=== PATIENT | female | born 1985 | race Caucasian/White ===

== ENCOUNTER 2022-10-16 12:27 | Emergency (ER) | payer MEDICAID, OTHER ==
[~2022-10-16] VITALS: Ht 154.9 cm; Wt 71.0 kg
[~2022-10-16 12:27] MED LIST: ALPR-341; BUPR150T2; [UNRECOGNIZED DRUG - CODE]
[2022-10-16 12:40] VITALS: BP 122/81
[2022-10-16] MEDS ORDERED: IBUPROFEN 600MG TABLET PO ONE (13:15)
[2022-10-16] MEDS ORDERED: IBUP-2029 MT (14:18)
== END 2022-10-16 14:29 | disposition home or self-care (01) ==
LOC: ER 12:27
DX: S93.401A Sprain of unspecified ligament of right ankle, initial encounter (principal); Z88.9 Allergy status to unspecified drugs, medicaments and biological substances; X58.XXXA Exposure to other specified factors, initial encounter; Y93.89 Activity, other specified; Y92.89 Other specified places as the place of occurrence of the external cause; Y99.8 Other external cause status
CPT/HCPCS: 73610; 81025; 99283

== ENCOUNTER 2024-08-08 13:33 | Emergency (ER) | payer OTHER, MEDICAID ==
[~2024-08-08] VITALS: Ht 154.9 cm; Wt 82.0 kg
[~2024-08-08 13:33] MED LIST changes: +IBUP-2029 MT
[2024-08-08 14:21] VITALS: O2SAT 98
[2024-08-08] MEDS: PREDNISONE 20MG TABLET PO ONE (17:20)
[2024-08-08 17:37] VITALS: PULSE 92; RESP 18
[2024-08-08] MEDS: ALBUTEROL (0.083%) 2.5MG/3ML NEB HHN ONE (17:37)
[2024-08-08] MEDS ORDERED: P50 MT (18:29)
[2024-08-08] MEDS ORDERED: ALBU18HF2 IH (18:29)
[2024-08-08 18:44] VITALS: BP 120/89; PULSE 89; RESP 18; TEMP 37.11408; O2SAT 98
== END 2024-08-08 18:47 | disposition home or self-care (01) ==
LOC: ER 13:44
DX: J02.9 Acute pharyngitis, unspecified (principal); R05.9 Cough, unspecified; Z88.8 Allergy status to other drugs, medicaments and biological substances
CPT/HCPCS: 81025; 87430; 87070; 71045; 94640; 94070; 99284; J7512; Z7610 ×3; 99283

== ENCOUNTER 2024-08-17 11:24 | Emergency (ER) | payer MEDICAID, OTHER ==
[~2024-08-17] VITALS: Ht 154.9 cm; Wt 82.0 kg
[~2024-08-17 11:24] MED LIST changes: +ALBU18HF2 IH; +P50 MT
[2024-08-17 11:33] VITALS: BP 122/80; TEMP 98.7
[2024-08-17 11:35] VITALS: O2SAT 97
[2024-08-17 12:45] VITALS: PULSE 110; RESP 29; O2SAT 97
[2024-08-17] MEDS ORDERED: IPRATROPIUM/ALBUTEROL 0.5-3(2.5)MG/3ML NEB HHN ONE (12:45)
[2024-08-17] MEDS ORDERED: ALBU18HF2 IH (13:28)
[2024-08-17] MEDS: PREDNISONE 20MG TABLET PO STA (13:29)
[2024-08-17] MEDS ORDERED: IPRATROPIUM/ALBUTEROL 0.5-3(2.5)MG/3ML NEB HHN SCH (14:15)
[2024-08-17] MEDS ORDERED: P50 MT (16:22)
== END 2024-08-17 15:06 | disposition home or self-care (01) ==
LOC: ER 11:24
DX: R09.81 Nasal congestion (principal); J06.9 Acute upper respiratory infection, unspecified; R05.9 Cough, unspecified; Z88.8 Allergy status to other drugs, medicaments and biological substances
CPT/HCPCS: 94070; 99283; J7512; Z7610